=== PATIENT | male | born 1980 | race Caucasian/White ===

== ENCOUNTER 2017-09-02 04:46 | Emergency (ER) | payer SELFPAY ==
[~2017-09-02] VITALS: Ht 175.3 cm; Wt 82.0 kg
[2017-09-02 04:49] VITALS: BP 165/100
== END 2017-09-02 07:54 | disposition left against medical advice (07) ==
LOC: ER 04:46
DX: N50.89 Other specified disorders of the male genital organs (principal); Z53.21 Procedure and treatment not carried out due to patient leaving prior to being seen by health care provider